=== PATIENT | male | born 1970 | race Caucasian/White ===

== ENCOUNTER 2017-11-01 19:50 | Emergency (ER) | payer OTHER ==
[~2017-11-01] VITALS: Ht 172.7 cm; Wt 81.7 kg
[2017-11-01] MEDS ORDERED: DIPH,PERTUSS(ACELL),TET VAC/PF 0.5 ML IM-VACC ONE (20:00)
[2017-11-01] MEDS ORDERED: MICROFIBRILLAR COLLAGEN 1 GM TP ONE (20:10)
[2017-11-01] MEDS ORDERED: MICROFIBRILLAR COLLAGEN 0.5GM/PACK TP ONE (20:30)
[2017-11-01 20:31] VITALS: BP 168/102
== END 2017-11-01 20:48 | disposition home or self-care (01) ==
LOC: ED 20:00
DX: S61.301A Unspecified open wound of left index finger with damage to nail, initial encounter (principal); M10.042 Idiopathic gout, left hand; I10 Essential (primary) hypertension; W45.8XXA Other foreign body or object entering through skin, initial encounter; Y93.89 Activity, other specified; Y99.8 Other external cause status; Y92.009 Unspecified place in unspecified non-institutional (private) residence as the place of occurrence of the external cause
CPT/HCPCS: 12041; 99284